=== PATIENT | female | born 1930 | race Caucasian/White ===

== ENCOUNTER → 2017-07-20 | Outpatient (CLI) | payer MEDICARE ==
--- NOTE | 2017-07-20 14:49 | XR ---
EXAMINATION TYPE: XR Hip Complete RT DATE OF EXAM: 07/20/2017 CLINICAL HISTORY: Right hip pain after fall TECHNIQUE: AP and frogleg views of the right hip are obtained. COMPARISON: None. FINDINGS: There is no acute fracture/dislocation evident in the right hip. 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 Few surgical clips are seen within the pelvis likely from prior hernia repair. The overlying soft tissue appears unremarkable. IMPRESSION: There is no acute fracture or dislocation in the right hip. Moderate right femoral aceta bular arthropathy.
== END | disposition home or self-care (01) ==
LOC: RADXRMAIN 13:47
PROVIDERS: ATTEND Family Medicine
DX: M16.11 Unilateral primary osteoarthritis, right hip (principal)
CPT/HCPCS: 73502

== ENCOUNTER 2018-06-15 04:40 | Emergency (ER) | payer MEDICARE ==
[2018-06-15 04:51] VITALS: RESP 22
[2018-06-15] MEDS ORDERED: IPRATROPIUM-ALBUTEROL 3 ML NEB INHALATION STA (04:52)
[2018-06-15 05:16] LABS: Basophils % (A) 0 %; Eosinophils # (A) 0.2 k/uL (0-0.7); Eosinophils % (A) 3 %; HGB 12.9 gm/dL (11.4-16.0); Lymphocytes # (A) 1.3 k/uL (1.0-4.8); Lymphocytes % (A) 20 %; MCH 29.9 pg (25.0-35.0); MCHC 33.1 g/dL (31.0-37.0); MCV 90.4 fL (80.0-100.0); Mean Platelet Volume 7.4; Monocytes # (A) 0.5 k/uL (0-1.0); Monocytes % (A) 8 %; Neutrophils # (A) 4.2 k/uL (1.3-7.7); Neutrophils % (A) 66 %; Platelet Count 257 k/uL (150-450); RBC 4.32 m/uL (3.80-5.40); RDW 13.7 % (11.5-15.5); WBC 6.3 k/uL (3.8-10.6)
--- NOTE | 2018-06-15 05:18 | XR ---
EXAM: XR Chest, 2 Views CLINICAL HISTORY: ITS.REASON XR Reason: difficulty breathing TECHNIQUE: Frontal and lateral views of the chest. COMPARISON: 02/01/18 chest x-ray IMPRESSION: Unchanged heart size. No consolidation or pleural effusion.
[2018-06-15 05:33] LABS: Calcium 9.7 mg/dL (8.4-10.2); Magnesium 1.8 mg/dL (1.6-2.3); Potassium 4.1 mmol/L (3.5-5.1); Total Bilirubin 0.5 mg/dL (0.2-1.3); Total Protein 6.4 g/dL (6.3-8.2)
[2018-06-15 05:35] LABS: INR 1.1 (<1.2); Prothrombin Time 11.3 sec (9.0-12.0)
[2018-06-15 05:45] LABS: Partial Thromboplastin Time 21.8 sec (22.0-30.0)
--- NOTE | 2018-06-15 05:50 | ED ---
SOB HPI - General Chief Complaint: Shortness of Breath Stated Complaint: BRANDON Source: patient Mode of arrival: wheelchair Limitations: no limitations - History of Present Illness Initial Comments: Patient is a pleasant 87-year-old female with a history of COPD who presents to the emergency department today for shortness of breath and wheezing. Patient reports she's been using her albuterol inhalers at home with only minimal improvement in her shortness of breath which prompted her to come to the ER today for further evaluation. Patient denies any chest pain or palpitations. She reports she feels short of breath and wheezy consistent with previous COPD exacerbations. - Related Data Home Medications Medication Instructions Recorded Confirmed Aspirin [Adult Low Dose Aspirin EC] 81 mg PO DAILY 02/10/15 01/31/18 Atorvastatin Calcium [Lipitor] 10 mg PO HS 02/10/15 01/31/18 Montelukast Sodium [Singulair] 10 mg PO HS 02/10/15 01/31/18 Tiotropium [place] [Spiriva] 1 cap INHALATION RT-DAILY PRN 02/10/15 01/31/18 amLODIPine [Norvasc] 5 mg PO DAILY 02/10/15 01/31/18 diphenhydrAMINE HCL [Benadryl] 25 mg PO HS 02/10/15 01/31/18 Fluticasone/Salmeterol [Advair 1 puff INHALATION RT-BID 02/20/15 01/31/18 500-50 Diskus] Metoprolol Tartrate [Lopressor] 25 mg PO BID 02/20/15 01/31/18 Cephalexin [Keflex] 500 mg PO BID 01/31/18 01/31/18 predniSONE 10 mg PO DAILY 01/31/18 01/31/18 Previous Rx's Medication Instructions Recorded Albuterol Nebulized [Ventolin 2.5 mg INHALATION Q4H PRN #25 nebu 01/31/18 Nebulized] Albuterol Sulfate [Proair Hfa] 1 - 2 puff INHALATION Q4H PRN #1 01/31/18 inhaler Azithromycin [Zithromax Z-pack] 0 mg PO DIRECTED #1 pack 01/31/18 Sulfamethox-Tmp 800-160Mg [Bactrim 1 tab PO Q12HR #14 tab 01/31/18 DS 800-160 mg] Ipratropium-Albuterol Nebulize 3 ml INHALATION Q4H PRN #30 neb 06/15/18 [Duoneb 0.5 mg-3 mg/3 ml Soln] predniSONE [Deltasone] 40 mg PO DAILY 5 Days #10 tablet 06/15/18 Allergies Allergy/AdvReac Type Severity Reaction Status Date / Time adhesive tape Allergy Intermediate Rash/Hives Verified 01/31/18 21:49 azithromycin [From Zithromax] Allergy Unknown Verified 01/31/18 21:51 levofloxacin [From Levaquin] Allergy Unknown Verified 01/31/18 21:51 Penicillins Allergy Unknown Verified 01/31/18 21:49 Childhood Review of Systems ROS Statement: Those systems with pertinent positive or pertinent negative responses have been documented in the HPI. ROS Other: All systems not noted in ROS Statement are negative. 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 Patient is nontoxic and well- hydrated and is in no distress. HENT: Normocephalic, Atraumatic. EYES: PERRL, EOMI PULMONARY: Mild expiratory wheezing in all lung fisher CARDIOVASCULAR: There is a regular rate and rhythm without any murmurs gallops or rubs. ABDOMEN: Soft and nontender with normal bowel sounds. SKIN: Skin is clear with no lesions or rashes and otherwise unremarkable. : Deferred NEUROLOGIC: Patient is alert and oriented x3. Moving all extremities spontaneously MUSCULOSKELETAL: Normal extremities with adequate strength and full range of motion. No lower extremity swelling or edema. No calf tenderness. PSYCHIATRIC: Normal psychiatric evaluation. Limitations: no limitations Limitations: no limitations Course Vital Signs 06/15/18 06/15/18 06/15/18 04:47 04:50 05:17 Temperature 99.0 F Pulse Rate 112 H 91 Respiratory 20 22 Rate Blood Pressure 175/88 O2 Sat by Pulse 97 Oximetry 06/15/18 06/15/18 05:29 06:47 Temperature 98.8 F Pulse Rate 92 87 Respiratory 22 Rate Blood Pressure 153/84 O2 Sat by Pulse 96 Oximetry Medical Decision Making - Medical Decision Making Patient was seen in and evaluated history was obtained from patient and review of medical record Elderly female with a history of COPD not responding to nebulized albuterol home DuoNeb was ordered. Thorough workup was initiated The patient's history of shortness of breath and advanced age and EKG was ordered next line EKG was obtained at 4:54 AM EKG with a rate of 96 is a P-wave before each QRS rhythm is sinus there is normal axis there are normal intervals, ND 164, QRS 90, QTC 452 there are no acute ST elevations or depressions there is no evidence of acute ischemia or infarction Patient received DuoNeb was reevaluated afterwards reports she's feeling much better she is no longer wheezing she is breathing much easier at this time patient's comfortable with the plan for discharge home will be prescribed DuoNeb as well as steroids. All questions pertaining care were answered return parameters were discussed with the patient was discharged home in stable condition - Lab Data Result diagrams: 06/15/18 05:02 06/15/18 05:02 Lab Results 06/15/18 06/15/18 06/15/18 Range/Units 05:02 05:02 05:02 WBC 6.3 (3.8-10.6) k/uL RBC 4.32 (3.80-5.40) m/uL Hgb 12.9 (11.4-16.0) gm/dL Hct 39.0 (34.0-46.0) % MCV 90.4 (80.0-100.0) fL MCH 29.9 (25.0-35.0) pg MCHC 33.1 (31.0-37.0) g/dL RDW 13.7 (11.5-15.5) % Plt Count 257 (150-450) k/uL Neutrophils % 66 % Lymphocytes % 20 % Monocytes % 8 % Eosinophils % 3 % Basophils % 0 % Neutrophils # 4.2 (1.3-7.7) k/uL Lymphocytes # 1.3 (1.0-4.8) k/uL Monocytes # 0.5 (0-1.0) k/uL Eosinophils # 0.2 (0-0.7) k/uL Basophils # 0.0 (0-0.2) k/uL PT (9.0-12.0) sec INR (<1.2) APTT (22.0-30.0) sec Sodium 141 (137-145) mmol/L Potassium 4.1 (3.5-5.1) mmol/L Chloride 106 (98-107) mmol/L Carbon Dioxide 26 (22-30) mmol/L Anion Gap 9 mmol/L BUN 30 H (7-17) mg/dL Creatinine 1.08 H (0.52-1.04) mg/dL Est GFR (CKD-EPI)AfAm 53 (>60 ml/min/1.73 sqM) Est GFR (CKD-EPI)NonAf 46 (>60 ml/min/1.73 sqM) Glucose 102 H (74-99) mg/dL Calcium 9.7 (8.4-10.2) mg/dL Magnesium 1.8 (1.6-2.3) mg/dL Total Bilirubin 0.5 (0.2-1.3) mg/dL AST 36 (14-36) U/L ALT 41 (9-52) U/L Alkaline Phosphatase 76 (38-126) U/L Troponin I (0.000-0.034) ng/mL NT-Pro-B Natriuret Pep 241 pg/mL Total Protein 6.4 (6.3-8.2) g/dL Albumin 4.0 (3.5-5.0) g/dL 06/15/18 06/15/18 Range/Units 05:02 05:02 WBC (3.8-10.6) k/uL RBC (3.80-5.40) m/uL Hgb (11.4-16.0) gm/dL Hct (34.0-46.0) % MCV (80.0-100.0) fL MCH (25.0-35.0) pg MCHC (31.0-37.0) g/dL RDW (11.5-15.5) % Plt Count (150-450) k/uL Neutrophils % % Lymphocytes % % Monocytes % % Eosinophils % % Basophils % % Neutrophils # (1.3-7.7) k/uL Lymphocytes # (1.0-4.8) k/uL Monocytes # (0-1.0) k/uL Eosinophils # (0-0.7) k/uL Basophils # (0-0.2) k/uL PT 11.3 (9.0-12.0) sec INR 1.1 (<1.2) APTT 21.8 L (22.0-30.0) sec Sodium (137-145) mmol/L Potassium (3.5-5.1) mmol/L Chloride (98-107) mmol/L Carbon Dioxide (22-30) mmol/L Anion Gap mmol/L BUN (7-17) mg/dL Creatinine (0.52-1.04) mg/dL Est GFR (CKD-EPI)AfAm (>60 ml/min/1.73 sqM) Est GFR (CKD-EPI)NonAf (>60 ml/min/1.73 sqM) Glucose (74-99) mg/dL Calcium (8.4-10.2) mg/dL Magnesium (1.6-2.3) mg/dL Total Bilirubin (0.2-1.3) mg/dL AST (14-36) U/L ALT (9-52) U/L Alkaline Phosphatase (38-126) U/L Troponin I <0.012 (0.000-0.034) ng/mL NT-Pro-B Natriuret Pep pg/mL Total Protein (6.3-8.2) g/dL Albumin (3.5-5.0) g/dL Disposition Clinical Impression: COPD (chronic obstructive pulmonary disease) Disposition: HOME SELF-CARE Condition: Stable Instructions (If sedation given, give patient instructions): Chronic Bronchitis (ED), Chronic Cough (ED) Prescriptions: predniSONE [Deltasone] 40 mg PO DAILY 5 Days #10 tablet Ipratropium-Albuterol Nebulize [Duoneb 0.5 mg-3 mg/3 ml Soln] 3 ml INHALATION Q4H PRN #30 neb PRN Reason: Wheezing Is patient prescribed a controlled substance at d/c from ED?: No Referrals: Brando Hernandez MD [Primary Care Provider] - 1-2 days
[2018-06-15 06:49] VITALS: BP 153/84; PULSE 87; TEMP 98.8
== END 2018-06-15 07:18 | disposition home or self-care (01) ==
LOC: EC 04:40
DX: J44.9 Chronic obstructive pulmonary disease, unspecified (principal); E78.5 Hyperlipidemia, unspecified; I10 Essential (primary) hypertension; Z86.73 Personal history of transient ischemic attack (TIA), and cerebral infarction without residual deficits; Z87.891 Personal history of nicotine dependence; Z79.52 Long term (current) use of systemic steroids; Z79.82 Long term (current) use of aspirin; Z79.51 Long term (current) use of inhaled steroids; Z79.899 Other long term (current) drug therapy; Z88.0 Allergy status to penicillin; Z88.1 Allergy status to other antibiotic agents; Z91.048 Other nonmedicinal substance allergy status
CPT/HCPCS: 36415; 71046; 80053; 83735; 83880; 84484; 85025; 85610; 85730; 93005; 94640; 99285

== ENCOUNTER → 2018-07-27 | Outpatient (CLI) | payer MEDICARE ==
--- NOTE | 2018-07-27 09:29 | US ---
EXAMINATION TYPE: US renal artery duplex complet DATE OF EXAM: 07/27/2018 COMPARISON: CT CLINICAL HISTORY: N17.9 Acute kidney failure; I70.1 Atherosclerosis.. Pt states recent abnormal labs, h/o of HTN controlled many years by medication MEASUREMENTS: RENAL SIZE: Rt Kidney: 10.1 x 4.2 x 4.6 cm Lt Kidney: 10.5 x 4.2 x 3.9 cm RESISTANCE INDEX Right: 0.6 Left: 0.64 RA/AO RATIO (< 3.5 ) Right: 2.1 Left: 2.2 RA VELOCITY ( < 180 cm/s) Right: 151.9 Left: 158.5 Cysts bilateral kidneys, largest on each side measured/ Right kidney mid/lateral= 1.2 x 0.9 x 1.0 c m/ Left kidney lower pole= 1.7 x 1.3 x 1.7 cm, bladder wnl Calcifications within aorta and renal arteries, however no significant renal artery stenosis visual ized IMPRESSION: 1. No sonographic evidence for renal artery stenosis.
== END | disposition home or self-care (01) ==
LOC: RADUSWWP 07:49
PROVIDERS: ATTEND Family Medicine
DX: N17.9 Acute kidney failure, unspecified (principal)
CPT/HCPCS: 93975

== ENCOUNTER 2020-05-17 09:13 | Observation (INO) | payer MEDICARE ==
[2020-05-17] MEDS ORDERED: IPRATROPIUM-ALBUTEROL 3 ML NEB INHALATION STA (09:28)
[2020-05-17] MEDS ORDERED: methylPREDNISolone SOD SUCCI 125 MG/2 ML VIAL IV STA (09:28)
--- NOTE | 2020-05-17 09:33 | ED ---
General Adult HPI - General Chief complaint: Shortness of Breath Stated complaint: sob Time Seen by Provider: 05/17/20 09:23 Source: patient, RN notes reviewed Mode of arrival: ambulatory Limitations: no limitations - History of Present Illness Initial comments: Patient is a pleasant 89-year-old female presenting to the emergency Department with complaints of dyspnea. Patient does have similar symptoms previously associated COPD. Patient did see her doctor in the being the week and started on prednisone 20 mg daily. Yesterday patient took dose of 60 mg. No significant cough. No chest pain. No fever. No leg pain or leg swelling. - Related Data Home Medications Medication Instructions Recorded Confirmed Aspirin [Adult Low Dose Aspirin EC] 81 mg PO DAILY 02/10/15 01/31/18 Atorvastatin Calcium [Lipitor] 10 mg PO HS 02/10/15 01/31/18 Montelukast Sodium [Singulair] 10 mg PO HS 02/10/15 01/31/18 Tiotropium [place] [Spiriva] 1 cap INHALATION RT-DAILY PRN 02/10/15 01/31/18 amLODIPine [Norvasc] 5 mg PO DAILY 02/10/15 01/31/18 diphenhydrAMINE HCL [Benadryl] 25 mg PO HS 02/10/15 01/31/18 Fluticasone/Salmeterol [Advair 1 puff INHALATION RT-BID 02/20/15 01/31/18 500-50 Diskus] Metoprolol Tartrate [Lopressor] 25 mg PO BID 02/20/15 01/31/18 Cephalexin [Keflex] 500 mg PO BID 01/31/18 01/31/18 predniSONE 10 mg PO DAILY 01/31/18 01/31/18 Previous Rx's Medication Instructions Recorded Albuterol Nebulized [Ventolin 2.5 mg INHALATION Q4H PRN #25 nebu 01/31/18 Nebulized] Albuterol Sulfate [Proair Hfa] 1 - 2 puff INHALATION Q4H PRN #1 01/31/18 inhaler Azithromycin [Zithromax Z-pack (6 0 mg PO DIRECTED #1 pack 01/31/18 tabs)] Sulfamethox-Tmp 800-160Mg [Bactrim 1 tab PO Q12HR #14 tab 01/31/18 DS 800-160 mg] Ipratropium-Albuterol Nebulize 3 ml INHALATION Q4H PRN #30 neb 06/15/18 [Duoneb 0.5 mg-3 mg/3 ml Soln] predniSONE [Deltasone] 40 mg PO DAILY 5 Days #10 tablet 06/15/18 Allergies Allergy/AdvReac Type Severity Reaction Status Date / Time adhesive tape Allergy Intermediate Rash/Hives Verified 05/17/20 09:19 azithromycin [From Zithromax] Allergy Unknown Verified 05/17/20 09:19 levofloxacin [From Levaquin] Allergy Unknown Verified 05/17/20 09:19 Penicillins Allergy Unknown Verified 05/17/20 09:19 Childhood Review of Systems ROS Statement: Those systems with pertinent positive or pertinent negative responses have been documented in the HPI. ROS Other: All systems not noted in ROS Statement are negative. Constitutional: Denies: fever Eyes: Denies: eye pain ENT: Denies: ear pain Respiratory: Reports: dyspnea. Denies: cough Cardiovascular: Denies: chest pain Endocrine: Denies: fatigue Gastrointestinal: Denies: abdominal pain Genitourinary: Denies: dysuria Musculoskeletal: Denies: back pain Skin: Denies: rash Neurological: Denies: weakness Past Medical History Past Medical History: COPD, CVA/TIA, Hyperlipidemia, Hypertension, Pneumonia Additional Past Medical History / Comment(s): TIA 20 yrs ago, bruises easily, History of Any Multi-Drug Resistant Organisms: None Reported Past Surgical History: Appendectomy, Cholecystectomy, Tonsillectomy Additional Past Surgical History / Comment(s): surgery for bowel obstruction, surgery for renal artery blockage, 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 Past Anesthesia/Blood Transfusion Reactions: No Reported Reaction Past Psychological History: No Psychological Hx Reported Smoking Status: Never smoker Past Alcohol Use History: Daily Past Drug Use History: None Reported - Past Family History Daughter(s) Family Medical History: Cancer General Exam Limitations: no limitations General appearance: alert, in no apparent distress Head exam: Present: normocephalic Eye exam: Present: normal appearance Neck exam: Present: normal inspection Respiratory exam: Present: wheezes, decreased breath sounds Cardiovascular Exam: Present: regular rate, normal rhythm GI/Abdominal exam: Present: soft. Absent: tenderness Extremities exam: Present: normal inspection. Absent: pedal edema, calf tenderness Neurological exam: Present: alert Psychiatric exam: Present: normal affect, normal mood Skin exam: Present: other (Patient does have healing lesions mid posterior thoracic region she states recent biopsy) Course Vital Signs 05/17/20 05/17/20 05/17/20 09:16 10:23 10:30 Temperature 98.5 F Pulse Rate 102 H 88 90 Respiratory 22 16 16 Rate Blood Pressure 202/93 O2 Sat by Pulse 96 Oximetry 05/17/20 10:42 Temperature Pulse Rate 80 Respiratory 18 Rate Blood Pressure 166/92 O2 Sat by Pulse 97 Oximetry EKG Findings - EKG Comments: EKG Findings:: Sinus rhythm with a rate of 89. IN 148. QRS 88. QT 340. QTc 413. Normal axis. Normal QRS. Nonspecific ST-T. Medical Decision Making - Medical Decision Making Patient reevaluated with mild improvement. Patient updated. Case discussed with Dr. Ballard, who will admit covering for Dr. rajan. Low suspicion for PE. With elevated d-dimer and elevated creatinine and VQ scan will be ordered. - Lab Data Result diagrams: 05/17/20 10:07 05/17/20 10:07 Lab Results 05/17/20 05/17/20 05/17/20 Range/Units 10:07 10:07 10:07 WBC 13.7 H (3.8-10.6) k/uL RBC 4.15 (3.80-5.40) m/uL Hgb 13.0 (11.4-16.0) gm/dL Hct 38.9 (34.0-46.0) % MCV 93.9 (80.0-100.0) fL MCH 31.2 (25.0-35.0) pg MCHC 33.3 (31.0-37.0) g/dL RDW 13.6 (11.5-15.5) % Plt Count 229 (150-450) k/uL MPV 7.9 Neutrophils % 77 % Lymphocytes % 13 % Monocytes % 8 % Eosinophils % 1 % Basophils % 0 % Neutrophils # 10.6 H (1.3-7.7) k/uL Lymphocytes # 1.7 (1.0-4.8) k/uL Monocytes # 1.1 H (0-1.0) k/uL Eosinophils # 0.2 (0-0.7) k/uL Basophils # 0.1 (0-0.2) k/uL PT 10.4 (9.0-12.0) sec INR 1.0 (<1.2) APTT 19.4 L (22.0-30.0) sec D-Dimer 1.05 H (<0.60) mg/L FEU Sodium 139 (137-145) mmol/L Potassium 4.3 (3.5-5.1) mmol/L Chloride 106 (98-107) mmol/L Carbon Dioxide 22 (22-30) mmol/L Anion Gap 11 mmol/L BUN 55 H (7-17) mg/dL Creatinine 1.98 H (0.52-1.04) mg/dL Est GFR (CKD-EPI)AfAm 25 (>60 ml/min/1.73 sqM) Est GFR (CKD-EPI)NonAf 22 (>60 ml/min/1.73 sqM) Glucose 110 H (74-99) mg/dL Plasma Lactic Acid [place] (0.7-2.0) mmol/L Calcium 9.4 (8.4-10.2) mg/dL Total Bilirubin 0.4 (0.2-1.3) mg/dL AST 30 (14-36) U/L ALT 30 (4-34) U/L Alkaline Phosphatase 84 (38-126) U/L Troponin I (0.000-0.034) ng/mL NT-Pro-B Natriuret Pep pg/mL Total Protein 6.5 (6.3-8.2) g/dL Albumin 4.1 (3.5-5.0) g/dL Coronavirus (PCR) (Not Detectd) 05/17/20 05/17/20 05/17/20 Range/Units 10:07 10:07 10:07 WBC (3.8-10.6) k/uL RBC (3.80-5.40) m/uL Hgb (11.4-16.0) gm/dL Hct (34.0-46.0) % MCV (80.0-100.0) fL MCH (25.0-35.0) pg MCHC (31.0-37.0) g/dL RDW (11.5-15.5) % Plt Count (150-450) k/uL MPV Neutrophils % % Lymphocytes % % Monocytes % % Eosinophils % % Basophils % % Neutrophils # (1.3-7.7) k/uL Lymphocytes # (1.0-4.8) k/uL Monocytes # (0-1.0) k/uL Eosinophils # (0-0.7) k/uL Basophils # (0-0.2) k/uL PT (9.0-12.0) sec INR (<1.2) APTT (22.0-30.0) sec D-Dimer (<0.60) mg/L FEU Sodium (137-145) mmol/L Potassium (3.5-5.1) mmol/L Chloride (98-107) mmol/L Carbon Dioxide (22-30) mmol/L Anion Gap mmol/L BUN (7-17) mg/dL Creatinine (0.52-1.04) mg/dL Est GFR (CKD-EPI)AfAm (>60 ml/min/1.73 sqM) Est GFR (CKD-EPI)NonAf (>60 ml/min/1.73 sqM) Glucose (74-99) mg/dL Plasma Lactic Acid [place] 1.8 (0.7-2.0) mmol/L Calcium (8.4-10.2) mg/dL Total Bilirubin (0.2-1.3) mg/dL AST (14-36) U/L ALT (4-34) U/L Alkaline Phosphatase (38-126) U/L Troponin I <0.012 (0.000-0.034) ng/mL NT-Pro-B Natriuret Pep 888 pg/mL Total Protein (6.3-8.2) g/dL Albumin (3.5-5.0) g/dL Coronavirus (PCR) (Not Detectd) 05/17/20 Range/Units 10:07 WBC (3.8-10.6) k/uL RBC (3.80-5.40) m/uL Hgb (11.4-16.0) gm/dL Hct (34.0-46.0) % MCV (80.0-100.0) fL MCH (25.0-35.0) pg MCHC (31.0-37.0) g/dL RDW (11.5-15.5) % Plt Count (150-450) k/uL MPV Neutrophils % % Lymphocytes % % Monocytes % % Eosinophils % % Basophils % % Neutrophils # (1.3-7.7) k/uL Lymphocytes # (1.0-4.8) k/uL Monocytes # (0-1.0) k/uL Eosinophils # (0-0.7) k/uL Basophils # (0-0.2) k/uL PT (9.0-12.0) sec INR (<1.2) APTT (22.0-30.0) sec D-Dimer (<0.60) mg/L FEU Sodium (137-145) mmol/L Potassium (3.5-5.1) mmol/L Chloride (98-107) mmol/L Carbon Dioxide (22-30) mmol/L Anion Gap mmol/L BUN (7-17) mg/dL Creatinine (0.52-1.04) mg/dL Est GFR (CKD-EPI)AfAm (>60 ml/min/1.73 sqM) Est GFR (CKD-EPI)NonAf (>60 ml/min/1.73 sqM) Glucose (74-99) mg/dL Plasma Lactic Acid [place] (0.7-2.0) mmol/L Calcium (8.4-10.2) mg/dL Total Bilirubin (0.2-1.3) mg/dL AST (14-36) U/L ALT (4-34) U/L Alkaline Phosphatase (38-126) U/L Troponin I (0.000-0.034) ng/mL NT-Pro-B Natriuret Pep pg/mL Total Protein (6.3-8.2) g/dL Albumin (3.5-5.0) g/dL Coronavirus (PCR) Not Detected (Not Detectd) - Radiology Data Radiology results: image reviewed (Chest x-ray shows chronic changes without acute abnormality) Disposition Clinical Impression: COPD (chronic obstructive pulmonary disease) Disposition: ADMITTED IP TO THIS HOSP Is patient prescribed a controlled substance at d/c from ED?: No Referrals: Babita Barron MD [Primary Care Provider] - 1-2 days Decision Time: 11:01
[2020-05-17 10:12] LABS: Basophils # (A) 0.1 k/uL (0-0.2); Basophils % (A) 0 %; Eosinophils # (A) 0.2 k/uL (0-0.7); Eosinophils % (A) 1 %; HCT 38.9 % (34.0-46.0); Lymphocytes # (A) 1.7 k/uL (1.0-4.8); Lymphocytes % (A) 13 %; MCH 31.2 pg (25.0-35.0); MCHC 33.3 g/dL (31.0-37.0); MCV 93.9 fL (80.0-100.0); Mean Platelet Volume 7.9; Monocytes # (A) 1.1 k/uL (0-1.0); Monocytes % (A) 8 %; Neutrophils # (A) 10.6 k/uL (1.3-7.7); Neutrophils % (A) 77 %; Platelet Count 229 k/uL (150-450); RBC 4.15 m/uL (3.80-5.40); RDW 13.6 % (11.5-15.5); WBC 13.7 k/uL (3.8-10.6)
[2020-05-17 10:23] LABS: Albumin 4.1 g/dL (3.5-5.0); Calcium 9.4 mg/dL (8.4-10.2); Potassium 4.3 mmol/L (3.5-5.1); Total Bilirubin 0.4 mg/dL (0.2-1.3); Total Protein 6.5 g/dL (6.3-8.2)
--- NOTE | 2020-05-17 10:33 | XR ---
EXAMINATION TYPE: XR chest 2V DATE OF EXAM: 05/17/2020 COMPARISON: Chest x-ray June 15, 2018 HISTORY: History of COPD with difficulty breathing for one week TECHNIQUE: Frontal and lateral views of the chest are obtained. 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 The cardiac silhouette size i s is stable and upper limits of is normal with atherosclerotic change thoracic aorta. The osseous s tructures remain demineralized. IMPRESSION: Chronic changes without acute pulmonary process. No significant change from prior.
[2020-05-17 10:34] LABS: Prothrombin Time 10.4 sec (9.0-12.0)
[2020-05-17 10:37] LABS: D-Dimer 1.05 mg/L FEU (<0.60)
[2020-05-17 10:38] LABS: Partial Thromboplastin Time 19.4 sec (22.0-30.0)
[2020-05-17] MEDS ORDERED: IPRATROPIUM-ALBUTEROL 3 ML NEB INHALATION PRN (11:16)
[2020-05-17] MEDS: IPRATROPIUM-ALBUTEROL 3 ML NEB INHALATION SCH ×3 (11:38→19:48)
--- NOTE | 2020-05-17 13:03 | P.HPIM ---
History of Present Illness H&P Date: 05/17/20 Leanne Esteves, is an 89-year-old female who presented to [facility] with a chief complaint of worsening shortness of breath, patient has a known history of COPD she stated that she started having shortness of breath about 2 weeks ago she received oral steroids by her primary care physician Dr. Barron however her condition continued to worsen and she decided to come to emergency room. Patient was evaluated in emergency room her vital examination on presentation reveals a temperature of 98.5 pulse 1 or 2 respiration 22 blood pressure 202/93 pulse ox 96% on room air, her white blood count was 13.7 hemoglobin 13 platelet count 229 BUN 55 creatinine 1.98 troponin level 0.012 BNP was 888 lactic acid 1.8 d-dimer 1.05 coronavirus PCR was negative chest x-ray on presentation revealed chronic changes without acute pulmonary process, EKG revealed normal sinus rhythm with nonspecific ST and T-wave abnormality. Her past medical history is significant for history of hypertension, history of hyperlipidemia, history of COPD, history of pneumonia, history of TIA 20 years ago, history of bowel obstruction requiring surgery in the past, history of ovarian tumor removal. 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 On review of systems patient is alert and oriented 3 in no apparent distress she is complaining of weakness of breath with any activity she has some dry cough without any sputum production otherwise she denies any complaints there is no fever or chills no headache or dizziness no chest pain no palpitation no nausea or vomiting no abdominal pain no diarrhea no blood in the stools no burning with urination no frequency or urgency and no hematuria. Past Medical History Past Medical History: COPD, CVA/TIA, Hyperlipidemia, Hypertension, Pneumonia Additional Past Medical History / Comment(s): TIA 20 yrs ago, bruises easily, History of Any Multi-Drug Resistant Organisms: None Reported Past Surgical History: Appendectomy, Cholecystectomy, Tonsillectomy Additional Past Surgical History / Comment(s): surgery for bowel obstruction, surgery for renal artery blockage, 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 Past Anesthesia/Blood Transfusion Reactions: No Reported Reaction Past Psychological History: No Psychological Hx Reported Smoking Status: Never smoker Past Alcohol Use History: Daily Past Drug Use History: None Reported - Past Family History Daughter(s) Family Medical History: Cancer Medications and Allergies Home Medications Medication Instructions Recorded Confirmed Type Aspirin [Adult Low Dose Aspirin EC] 81 mg PO DAILY 02/10/15 05/17/20 History Atorvastatin Calcium [Lipitor] 10 mg PO HS 02/10/15 05/17/20 History Montelukast Sodium [Singulair] 10 mg PO HS 02/10/15 05/17/20 History amLODIPine [Norvasc] 5 mg PO DAILY 02/10/15 05/17/20 History Metoprolol Tartrate [Lopressor] 25 mg PO BID 02/20/15 05/17/20 History Fluticasone/Umeclidin/Vilanter 1 puff INHALATION RT-DAILY 05/17/20 05/17/20 History [Trelegy Ellipta 100-62.5-25] Multivitamins, Thera [Multivitamin 1 tab PO DAILY 05/17/20 05/17/20 History (formulary)] predniSONE [Deltasone] See Taper PO DAILY 05/17/20 05/17/20 History Allergies Allergy/AdvReac Type Severity Reaction Status Date / Time adhesive tape Allergy Intermediate Rash/Hives Verified 05/17/20 11:05 azithromycin [From Zithromax] Allergy Unknown Verified 05/17/20 11:05 levofloxacin [From Levaquin] Allergy Unknown Verified 05/17/20 11:05 Penicillins Allergy Unknown Verified 05/17/20 11:05 Childhood Physical Exam Vitals: Vital Signs Temp Pulse Resp BP Pulse Ox 05/17/20 10:42 80 18 166/92 97 05/17/20 10:30 90 16 05/17/20 10:23 88 16 05/17/20 09:16 98.5 F 102 H 22 202/93 96 Intake and Output 05/16/20 05/17/20 05/17/20 22:59 06:59 14:59 Other: Weight 68.039 kg In general patient is alert and oriented 3 in no apparent distress HEENT head normocephalic and atraumatic Neck is supple no JVD no goiter no lymphadenopathy Chest exam reveals a scattered crackles bilaterally no wheezing Cardiac exam reveals regular heart sounds S1 and S2 no gallops no murmurs Abdomen is soft nontender no organomegaly with normal bowel sounds Extremity exam reveals no edema no cyanosis or clubbing Neurological examination reveals no gross focal deficit Results CBC & Chem 7: 05/17/20 10:07 05/17/20 10:07 Labs: Abnormal Lab Results - Last 24 Hours (Table) 05/17/20 05/17/20 05/17/20 Range/Units 10:07 10:07 10:07 WBC 13.7 H (3.8-10.6) k/uL Neutrophils # 10.6 H (1.3-7.7) k/uL Monocytes # 1.1 H (0-1.0) k/uL APTT 19.4 L (22.0-30.0) sec D-Dimer 1.05 H (<0.60) mg/L FEU BUN 55 H (7-17) mg/dL Creatinine 1.98 H (0.52-1.04) mg/dL Glucose 110 H (74-99) mg/dL Assessment and Plan Plan: 1. Worsening shortness of breath likely related to acute exacerbation of COPD patient will be given IV Solu-Medrol and inhaled bronchodilators, pulmonary consultation was requested. 2. Mildly elevated d-dimer, patient has elevated BUN and creatinine, CT angiogram of the chest was not done in the emergency room, will cover was Lovenox, and check VQ scan 3. Underlying history of hypertension, with hypertensive urgency on presentation patient stated that she did not take her blood pressure medications this morning, will resume blood pressure medications and adjust if needed 4. Underlying history of hyperlipidemia maintained on Lipitor will continue Will follow during this admission For GI prophylaxis Will add proton next, for DVT prophylaxis will give full dose of Lovenox at this time until VQ scan is done
--- NOTE | 2020-05-17 13:32 | NM ---
EXAMINATION TYPE: NM pul vent and perfuse DATE OF EXAM: 05/17/2020 COMPARISON: Same day chest x-ray. HISTORY: Shortness of breath TECHNIQUE: Utilizing inhalation of 65.8 mCi Tc 99m DTPA aerosol and intravenous injection of 5.1 mCi of Tc 99m MAA, ventilation and perfusion images are acquired post injection in multiple projections. FINDINGS: Central clumping with heterogeneity on ventilation images consistent with underlying COPD. Improved radiotracer uptake on perfusion images. There is no evidence of mismatched defects. IMPRESSION: Low scintigraphic evidence for acute pulmonary embolism.
[2020-05-17] MEDS: methylPREDNISolone SOD SUCCI 125 MG/2 ML VIAL IV SCH ×3 (14:37→23:17)
[2020-05-17] MEDS: MULTIVITAMINS, THERA 1 EACH TAB PO SCH (14:38)
[2020-05-17] MEDS: ASPIRIN 81 MG PO SCH (14:38)
[2020-05-17] MEDS: amLODIPine 5 MG TAB PO SCH (14:38)
[2020-05-17] MEDS: METOPROLOL TARTRATE 25 MG TAB PO SCH ×2 (14:38→20:44)
[2020-05-17] MEDS: IPRATROPIUM 0.5 MG/2.5 ML NEBU INHALATION SCH ×2 (15:34→19:49)
[2020-05-17] MEDS: ATORVASTATIN 10 MG TAB PO SCH (20:44)
[2020-05-17] MEDS: ENOXAPARIN 60 MG/0.6 ML SYRINGE SQ SCH (20:45)
[2020-05-17] MEDS: MONTELUKAST 10 MG TAB PO SCH (20:45)
[2020-05-18] MEDS: methylPREDNISolone SOD SUCCI 125 MG/2 ML VIAL IV SCH ×2 (05:00→13:27)
[2020-05-18] MEDS: SYMBICORT 80-4.5 MCG INHALER INHALATION SCH ×2 (08:45→20:57)
[2020-05-18] MEDS: IPRATROPIUM-ALBUTEROL 3 ML NEB INHALATION SCH ×4 (08:45→20:57)
[2020-05-18] MEDS: ENOXAPARIN 60 MG/0.6 ML SYRINGE SQ SCH (08:46)
[2020-05-18] MEDS: amLODIPine 5 MG TAB PO SCH ×2 (08:47→21:57)
[2020-05-18] MEDS: MULTIVITAMINS, THERA 1 EACH TAB PO SCH (08:47)
[2020-05-18] MEDS: METOPROLOL TARTRATE 25 MG TAB PO SCH ×2 (08:47→21:57)
[2020-05-18] MEDS: PANTOPRAZOLE 40 MG TABLET PO SCH (08:47)
[2020-05-18] MEDS: ASPIRIN 81 MG PO SCH (08:47)
[2020-05-18] MEDS: IPRATROPIUM 0.5 MG/2.5 ML NEBU INHALATION SCH ×4 (08:48→20:58)
[2020-05-18] MEDS ORDERED: ENOXAPARIN 40 MG/0.4 ML SYRINGE SQ SCH (09:00)
--- NOTE | 2020-05-18 13:47 | P.CNPUL ---
History of Present Illness Consult date: 05/18/20 Reason for consult: dyspnea, COPD History of present illness: 89-year-old. Patient presented to the emergency department because of worsening shortness of breath. She is known to have COPD and over the past 2 weeks she was getting progressively worse. In the emergency she was also noted to have high blood pressure of 202/93. Her pulse ox was 96% on room air. She is a creatinine of 1.9 with a BUN of 55 and the proBNP level was 888 and a lactic acid level was at 1.8 with a d-dimer of 1.05. the provider/Covid 19 testing was negative. The patient was given also a VQ scan that do not to be of a low probability. She is known to have COPD, previous history of TIA more than 20 years ago, hypertension hyperlipidemia previous history of bowel obstruction requiring surgery. She also has a previous history of ovarian tumor that has been resected. She is an ex-smoker and quit smoking about 30 years ago. She sees pulmonary in our office. Her chest x-ray is consistent with COPD. No acute abnormalities are noted. No chest pain. No pleurisy. She is currently on DuoNeb nebulized treatments around the clock, she is on Symbicort 2 puffs twice a day and she is also on IV Solu-Medrol 60 mg every 6 hours. Home medications of been all resumed. Review of Systems Constitutional: Denies chills, Denies fever Eyes: denies as per HPI, denies blurred vision, denies bulging eye, denies decreased vision, denies diplopia, denies discharge, denies dry eye, denies irritation, denies itching, denies pain, denies photophobia, denies loss of peripheral vision, denies loss of vision, denies tunnel vision/blind spots Ears, nose, mouth and throat: Denies headache, Denies sore throat Breasts: absent: as per HPI, change in shape, gynecomastia, masses, nipple discharge, pain, skin changes, swelling Cardiovascular: Reports decreased exercise tolerance, Reports dyspnea on exertion Respiratory: Reports cough, Reports dyspnea Gastrointestinal: Reports as per HPI Genitourinary: Reports as per HPI Menstruation: Reports as per HPI Musculoskeletal: Reports as per HPI Musculoskeletal: absent: ankle pain, ankle stiffness, ankle swelling Integumentary: Reports as per HPI Neurological: Reports as per HPI Psychiatric: Reports as per HPI Endocrine: Reports as per HPI Hematologic/Lymphatic: Reports as per HPI Allergic/Immunologic: Reports as per HPI Past Medical History Past Medical History: COPD, CVA/TIA, Hyperlipidemia, Hypertension, Renal Disease Additional Past Medical History / Comment(s): TIA 20 yrs ago, the patient has advanced COPD and the patient has had a previous spirometry from 02/01/2019 indicating an FEV1 of 47% of predicted consistent with moderate to severe disease. Previous history of bowel obstruction, acid reflux, herpes zoster, ovarian tumor many years back. Chronic stage IV kidney disease History of Any Multi-Drug Resistant Organisms: None Reported Past Surgical History: Appendectomy, Cholecystectomy, Tonsillectomy Additional Past Surgical History / Comment(s): surgery for bowel obstruction, surgery for renal artery blockage, 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 Past Anesthesia/Blood Transfusion Reactions: No Reported Reaction Past Psychological History: No Psychological Hx Reported Smoking Status: Former smoker Past Alcohol Use History: Daily Additional Past Alcohol Use History / Comment(s): 1 glass wine daily Past Drug Use History: None Reported - Past Family History Daughter(s) Family Medical History: Cancer Medications and Allergies Home Medications Medication Instructions Recorded Confirmed Type Aspirin [Adult Low Dose Aspirin EC] 81 mg PO DAILY 02/10/15 05/17/20 History Atorvastatin Calcium [Lipitor] 10 mg PO HS 02/10/15 05/17/20 History Montelukast Sodium [Singulair] 10 mg PO HS 02/10/15 05/17/20 History amLODIPine [Norvasc] 5 mg PO DAILY 02/10/15 05/17/20 History Metoprolol Tartrate [Lopressor] 25 mg PO BID 02/20/15 05/17/20 History Fluticasone/Umeclidin/Vilanter 1 puff INHALATION RT-DAILY 05/17/20 05/17/20 History [Trelegy Ellipta 100-62.5-25] Multivitamins, Thera [Multivitamin 1 tab PO DAILY 05/17/20 05/17/20 History (formulary)] predniSONE [Deltasone] See Taper PO DAILY 05/17/20 05/17/20 History Allergies Allergy/AdvReac Type Severity Reaction Status Date / Time adhesive tape Allergy Intermediate Rash/Hives Verified 05/17/20 11:05 azithromycin [From Zithromax] Allergy Unknown Verified 05/17/20 11:05 levofloxacin [From Levaquin] Allergy Unknown Verified 05/17/20 11:05 Penicillins Allergy Unknown Verified 05/17/20 11:05 Childhood Physical Exam Vitals: Vital Signs Temp Pulse Pulse Resp BP Pulse Ox 05/18/20 12:03 82 16 05/18/20 11:52 84 16 05/18/20 09:00 88 16 05/18/20 08:46 86 16 95 05/18/20 07:00 98.1 F 76 18 182/86 97 05/18/20 01:44 97.8 F 63 16 169/79 97 05/18/20 00:49 19 05/17/20 20:00 98.3 F 81 17 161/77 96 05/17/20 19:58 86 05/17/20 19:50 86 05/17/20 15:45 86 05/17/20 15:37 84 05/17/20 15:00 97.9 F 82 20 173/76 97 05/17/20 14:00 82 20 Intake and Output 05/17/20 05/18/20 05/18/20 22:59 06:59 14:59 Intake Total 480 545 Balance 480 545 Intake: Oral 480 545 Other: Voiding Method Diaper Diaper Diaper # Voids 1 2 Results The patient appeared well nourished and normally developed. Vital signs as documented. Head exam is unremarkable. No scleral icterus or corneal arcus noted. Neck is without jugular venous distension, thyromegaly, or carotid bruits. Carotid upstrokes are brisk bilaterally. Lungs are clear to auscultation and percussion. Cardiac exam reveals the PMI to be normally sized and situated. Rhythm is regular. First and second heart sounds normal. No murmurs, rubs or gallops. Abdominal exam reveals normal bowel sounds, no masses, no organomegaly and no aortic enlargement. Extremities are nonedematous and both femoral and pedal pulses are normal.Examination of the skin revealed no evidence of significant rashes, suspicious appearing nevi or other concerning lesions.Neur ologically, the patient is awake and alert and the patient does not have any focal neurological deficit. Cranial nerves are essentially intact. - Laboratory Findings CBC and BMP: 05/17/20 10:07 05/17/20 10:07 PT/INR, D-dimer PT 10.4 sec (9.0-12.0) 05/17/20 10:07 INR 1.0 (<1.2) 05/17/20 10:07 D-Dimer 1.05 mg/L FEU (<0.60) H 05/17/20 10:07 Abnormal lab findings: Abnormal Labs 05/17/20 05/17/20 05/17/20 10:07 10:07 10:07 WBC 13.7 H Neutrophils # 10.6 H Monocytes # 1.1 H APTT 19.4 L D-Dimer 1.05 H BUN 55 H Creatinine 1.98 H Glucose 110 H - Diagnostic Findings Chest x-ray: image reviewed Assessment and Plan Plan: 1 acute exacerbation of COPD in a patient with advanced severe COPD was been oxygen and steroid dependent. Her FEV1 is order of 47% of predicted and the patient is demented on a combination of Trelegy Ellipta , Ventolin and albuterol nebulized treatments on a STEMI basis. 2 shortness of breath secondary to above 3 hypertension, the patient's blood pressure is still high. 4 hyperlipidemia 5 remote history of TIA 6 remote history of ovarian cancer resected 7 remote history of bowel obstruction requiring surgical intervention 8 chronic kidney disease with a GFR of 22 consistent with stage IV kidney disease Plan Clinically the patient is improving. She is less short of breath. She is not oxygen dependent. She is steroid-dependent and she takes Trelegy at home. She is feeling better. Continue same treatment. We'll start tapering steroids as of tomorrow or the day after. Her Covid 19 testing was negative and the patient has already been vaccinated. I'm going to cut down the steroids which may also help her with her blood pressure control. Her BP is elevated and I'll suggest increasing the Norvasc to 10 mg by mouth daily. Continue metoprolol 25 mg by mouth twice a day.
[2020-05-18] MEDS: hydrALAZINE HCL 25 MG TAB PO SCH ×2 (16:17→21:58)
--- NOTE | 2020-05-18 18:14 | P.PN ---
Subjective Progress Note Date: 05/18/20 Leanne Esteves, is an 89-year-old female who presented to [facility] with a chief complaint of worsening shortness of breath, patient has a known history of COPD she stated that she started having shortness of breath about 2 weeks ago she received oral steroids by her primary care physician Dr. Barron however her condition continued to worsen and she decided to come to emergency room. Patient was evaluated in emergency room her vital examination on presentation reveals a temperature of 98.5 pulse 1 or 2 respiration 22 blood pressure 202/93 pulse ox 96% on room air, her white blood count was 13.7 hemoglobin 13 platelet count 229 BUN 55 creatinine 1.98 troponin level 0.012 BNP was 888 lactic acid 1.8 d-dimer 1.05 coronavirus PCR was negative chest x-ray on presentation revealed chronic changes without acute pulmonary process, EKG revealed normal sinus rhythm with nonspecific ST and T-wave abnormality. Her past medical history is significant for history of hypertension, history of hyperlipidemia, history of COPD, history of pneumonia, history of TIA 20 years ago, history of bowel obstruction requiring surgery in the past, history of ovarian tumor removal. 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 On review of systems patient is alert and oriented 3 in no apparent distress she is complaining of weakness of breath with any activity she has some dry cough without any sputum production otherwise she denies any complaints there is no fever or chills no headache or dizziness no chest pain no palpitation no nausea or vomiting no abdominal pain no diarrhea no blood in the stools no burning with urination no frequency or urgency and no hematuria. On 05/18/2020 patient was seen and examined on the medical floor she is alert and oriented 3 in no apparent distress, her shortness of breath is improving, she denies any other symptoms there is no fever or chills no headache or dizziness no chest pain no cough no sputum production no palpitation no nausea or vomiting no abdominal pain no diarrhea no blood in the stools no burning with urination no frequency or urgency and no hematuria. VQ scan was done yesterday and showed low probability for pulmonary embolism at this time will discontinue Lovenox 60 mg twice daily and start Lovenox 40 mg subcu once daily. Objective - Vital Signs Vital signs: Vital Signs Temp 98.1 F 03/01/21 07:00 Pulse 86 05/18/20 08:46 Resp 16 05/18/20 08:46 BP 182/86 05/18/20 07:00 Pulse Ox 95 05/18/20 08:46 Intake & Output 05/17/20 05/18/20 05/18/20 18:59 06:59 18:59 Intake Total 680 545 Balance 680 545 Weight 68.039 kg Intake: Oral 680 545 Other: Voiding Method Diaper Diaper Diaper # Voids 1 2 - Exam In general patient is alert and oriented 3 in no apparent distress HEENT head normocephalic and atraumatic Neck is supple no JVD no goiter no lymphadenopathy Chest exam reveals a scattered crackles bilaterally no wheezing Cardiac exam reveals regular heart sounds S1 and S2 no gallops no murmurs Abdomen is soft nontender no organomegaly with normal bowel sounds Extremity exam reveals no edema no cyanosis or clubbing Neurological examination reveals no gross focal deficit - Labs CBC & Chem 7: 05/17/20 10:07 05/17/20 10:07 Labs: Abnormal Lab Results - Last 24 Hours (Table) 05/17/20 05/17/20 05/17/20 Range/Units 10:07 10:07 10:07 WBC 13.7 H (3.8-10.6) k/uL Neutrophils # 10.6 H (1.3-7.7) k/uL Monocytes # 1.1 H (0-1.0) k/uL APTT 19.4 L (22.0-30.0) sec D-Dimer 1.05 H (<0.60) mg/L FEU BUN 55 H (7-17) mg/dL Creatinine 1.98 H (0.52-1.04) mg/dL Glucose 110 H (74-99) mg/dL Assessment and Plan Plan: 1. Worsening shortness of breath likely related to acute exacerbation of COPD patient will be given IV Solu-Medrol and inhaled bronchodilators, pulmonary consultation was requested. 2. Mildly elevated d-dimer, patient has elevated BUN and creatinine, CT angiogram of the chest was not done in the emergency room, will cover with full therapeutic dose Lovenox, and check VQ scan . VQ scan was done and was low prob ability for pulmonary embolism will discontinue Lovenox 60 mg subcu twice daily, and start Lovenox 40 mg subcu once daily. 3. Underlying history of hypertension, with hypertensive urgency on present ation patient stated that she did not take her blood pressure medications this morning, will resume blood pressure medications and adjust if needed 4. Underlying history of hyperlipidemia maintained on Lipitor will continue Will follow during this admission For GI prophylaxis Will add proton next, for DVT prophylaxis will give full dose of Lovenox at this time until VQ scan is done VQ scan low probability for PE dose of Lovenox changed to 40 mg subcu once daily
[2020-05-18] MEDS: MONTELUKAST 10 MG TAB PO SCH (21:57)
[2020-05-18] MEDS: ATORVASTATIN 10 MG TAB PO SCH (21:58)
[2020-05-18] MEDS: methylPREDNISolone SOD SUCCI 40 MG/ML 1 ML VIAL IV SCH (22:00)
[2020-05-19] MEDS: IPRATROPIUM-ALBUTEROL 3 ML NEB INHALATION SCH ×2 (08:11→11:35)
[2020-05-19] MEDS: SYMBICORT 80-4.5 MCG INHALER INHALATION SCH (08:13)
[2020-05-19] MEDS: IPRATROPIUM 0.5 MG/2.5 ML NEBU INHALATION SCH ×2 (08:13→11:35)
[2020-05-19] MEDS: methylPREDNISolone SOD SUCCI 40 MG/ML 1 ML VIAL IV SCH (08:27)
[2020-05-19] MEDS: ENOXAPARIN 30 MG/0.3 ML SYRINGE SQ SCH (08:27)
[2020-05-19] MEDS: hydrALAZINE HCL 25 MG TAB PO SCH (08:27)
[2020-05-19] MEDS: METOPROLOL TARTRATE 25 MG TAB PO SCH ×2 (08:27→20:28)
[2020-05-19] MEDS: PANTOPRAZOLE 40 MG TABLET PO SCH (08:28)
[2020-05-19] MEDS: ASPIRIN 81 MG PO SCH (08:28)
[2020-05-19] MEDS: MULTIVITAMINS, THERA 1 EACH TAB PO SCH (08:28)
[2020-05-19] MEDS: amLODIPine 5 MG TAB PO SCH ×2 (08:28→20:28)
[2020-05-19 09:12] LABS: African American GFR (CKD) 23.6 (60.0-200.0); Albumin 4.1 g/dL (3.80-4.90); Albumin/Globulin Ratio 2.41 (1.60-3.17); Anion Gap 9.3 mmol/L (4.00-12.00); BUN/Creat Ratio 30.48 Ratio (12.00-20.00); Carbon Dioxide 25.7 mmol/L (21.6-31.8); Globulin 1.7 g/dL (1.6-3.3); Non-African American GFR(CKD) 20.4 (60.0-200.0); Potassium 4.9 mmol/L (3.5-5.5); Total Bilirubin 0.4 mg/dL (0.2-1.2); Total Protein 5.8 g/dL (6.2-8.2)
[2020-05-19 09:14] LABS: Basophils # (A) 0.02 X 10*3/uL (0.00-0.10); Basophils % (A) 0.1 %; Eosinophils # (A) 0 X 10*3/uL (0.04-0.35); Eosinophils % (A) 0 %; HCT 33.6 % (37.2-46.3); HGB 10.9 g/dL (12.0-15.0); Lymphocytes # (A) 0.56 X 10*3/uL (0.90-5.00); Lymphocytes % (A) 3.4 %; MCH 30.9 pg (27.0-32.0); MCHC 32.4 g/dL (32.0-37.0); MCV 95.2 fL (80.0-97.0); Mean Platelet Volume 12.2 fL (9.5-12.2); Monocytes # (A) 0.48 X 10*3/uL (0.20-1.00); Monocytes % (A) 2.9 %; Neutrophils # (A) 15.25 X 10*3/uL (1.80-7.70); Neutrophils % (A) 92.7 %; Platelet Count 221 X 10*3/uL (140-440); RBC 3.53 X 10*6/uL (4.10-5.20); RDW 14.1 % (11.5-14.5); WBC 16.45 X 10*3/uL (4.50-10.00)
--- NOTE | 2020-05-19 11:50 | P.PN ---
Subjective Progress Note Date: 05/19/20 89-year-old. Patient presented to the emergency department because of worsening shortness of breath. She is known to have COPD and over the past 2 weeks she was getting progressively worse. In the emergency she was also noted to have high blood pressure of 202/93. Her pulse ox was 96% on room air. She is a creatinine of 1.9 with a BUN of 55 and the proBNP level was 888 and a lactic acid level was at 1.8 with a d-dimer of 1.05. the provider/Covid 19 testing was negative. The patient was given also a VQ scan that do not to be of a low probability. She is known to have COPD, previous history of TIA more than 20 years ago, hypertension hyperlipidemia previous history of bowel obstruction requiring surgery. She also has a previous history of ovarian tumor that has been resected. She is an ex-smoker and quit smoking about 30 years ago. She sees pulmonary in our office. Her chest x-ray is consistent with COPD. No acute abnormalities are noted. No chest pain. No pleurisy. She is currently on DuoNeb nebulized treatments around the clock, she is on Symbicort 2 puffs twice a day and she is also on IV Solu-Medrol 60 mg every 6 hours. Home medications of been all resumed. On today's evaluation of 05/19/2020, the patient is being seen for a follow-up. She is feeling well. No significant respiratory distress for now. No nausea. No vomiting. No abdominal pain. No chest pain. She feels that the breathing treatment is making her a bit nauseous. She is on DuoNeb nebulized treatments around the clock, she is on Symbicort 2 puffs twice a day and she is also on Solu-Medrol 40 mg U 12 hours and the dose was tapered yesterday. Objective - Vital Signs Vital signs: Vital Signs Temp 97.5 F L 05/19/20 07:00 Pulse 76 05/19/20 11:36 Resp 18 05/19/20 07:00 BP 180/81 05/19/20 07:00 Pulse Ox 96 05/19/20 07:00 Intake & Output 05/18/20 05/19/20 05/19/20 18:59 06:59 18:59 Intake Total 480 1440 Balance 480 1440 Intake: Oral 480 1440 Other: Voiding Method Diaper Diaper # Voids 3 1 - Exam The patient appeared well nourished and normally developed. Vital signs as documented. Head exam is unremarkable. No scleral icterus or corneal arcus noted. Neck is without jugular venous distension, thyromegaly, or carotid bruits . Carotid upstrokes are brisk bilaterally. Lungs are clear to auscultation and percussion. Cardiac exam reveals the PMI to be normally sized and situated. Rhythm is regular. First and second heart sounds normal. No murmurs, rubs or gallops. Abdominal exam reveals normal bowel sounds, no masses, no organomegaly and no aortic enlargement. Extremities are nonedematous and both femoral and pedal pulses are normal.Examination of the skin revealed no evidence of significant rashes, suspicious appearing nevi or other concerning lesions.Neurologically, the patient is awake and alert and the patient does not have any focal neurological deficit. Cranial nerves are essentially intact. - Labs CBC & Chem 7: 05/19/20 05:03 05/19/20 05:03 Labs: Abnormal Lab Results - Last 24 Hours (Table) 05/19/20 05/19/20 Range/Units 05:03 05:03 WBC 16.45 H (4.50-10.00) X 10*3/uL RBC 3.53 L (4.10-5.20) X 10*6/uL Hgb 10.9 L (12.0-15.0) g/dL Hct 33.6 L (37.2-46.3) % Immature Gran # 0.14 H (0.00-0.04) X 10*3/uL Neutrophils # 15.25 H (1.80-7.70) X 10*3/uL Lymphocytes # 0.56 L (0.90-5.00) X 10*3/uL Eosinophils # 0 L (0.04-0.35) X 10*3/uL BUN 64.0 H (9.0-27.0) mg/dL Creatinine 2.1 H (0.6-1.5) mg/dL Est GFR (CKD-EPI)AfAm 23.6 L (60.0-200.0) Est GFR (CKD-EPI)NonAf 20.4 L (60.0-200.0) BUN/Creatinine Ratio 30.48 H (12.00-20.00) Ratio Glucose 152 H (70-110) mg/dL Total Protein 5.8 L (6.2-8.2) g/dL Assessment and Plan Plan: 1 acute exacerbation of COPD in a patient with advanced severe COPD was been oxygen and steroid dependent. Her FEV1 is order of 47% of predicted and the patient is on Trelegy Ellipta , Ventolin and albuterol nebulized treatments on a when necessary basis.. 2 shortness of breath secondary to above 3 hypertension, the patient's blood pressure is still high. 4 hyperlipidemia 5 remote history of TIA 6 remote history of ovarian cancer resected 7 remote history of bowel obstruction requiring surgical intervention 8 chronic kidney disease with a GFR of 22 consistent with stage IV kidney disease Plan Clinically the patient is improving. She is less short of breath. She is not oxygen dependent. She is steroid-dependent and she takes Trelegy at home. I think is reasonable to discontinue the Symbicort and allow the patient to use her home Trelegy Ellipta one inhalation a day and uses albuterol on an as-needed basis. She can also off the IV Solu-Medrol and started prednisone burst taper. I also noted that the blood pressure was high. I increased the Norvasc to 5 mg by mouth twice a day. She is under better control though still high. We'll continue to monitor and make further adjustments. Suggest addition of hydralazine 50 mg by mouth twice a day for tighter blood pressure control.
[2020-05-19] MEDS ORDERED: ALBUTEROL NEBULIZED 2.5 MG/3 ML INHALATION PRN (11:54)
[2020-05-19] MEDS ORDERED: hydrALAZINE HCL 25 MG TAB PO ONE (12:00)
[2020-05-19] MEDS: TRELEGY ELLIPTA INHALATION SCH (12:17)
--- NOTE | 2020-05-19 13:12 | P.PN ---
Subjective Progress Note Date: 05/19/20 Leanne Esteves, is an 89-year-old female who presented to [facility] with a chief complaint of worsening shortness of breath, patient has a known history of COPD she stated that she started having shortness of breath about 2 weeks ago she received oral steroids by her primary care physician Dr. Barron however her condition continued to worsen and she decided to come to emergency room. Patient was evaluated in emergency room her vital examination on presentation reveals a temperature of 98.5 pulse 1 or 2 respiration 22 blood pressure 202/93 pulse ox 96% on room air, her white blood count was 13.7 hemoglobin 13 platelet count 229 BUN 55 creatinine 1.98 troponin level 0.012 BNP was 888 lactic acid 1.8 d-dimer 1.05 coronavirus PCR was negative chest x-ray on presentation revealed chronic changes without acute pulmonary process, EKG revealed normal sinus rhythm with nonspecific ST and T-wave abnormality. Her past medical history is significant for history of hypertension, history of hyperlipidemia, history of COPD, history of pneumonia, history of TIA 20 years ago, history of bowel obstruction requiring surgery in the past, history of ovarian tumor removal. 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 On review of systems patient is alert and oriented 3 in no apparent distress she is complaining of weakness of breath with any activity she has some dry cough without any sputum production otherwise she denies any complaints there is no fever or chills no headache or dizziness no chest pain no palpitation no nausea or vomiting no abdominal pain no diarrhea no blood in the stools no burning with urination no frequency or urgency and no hematuria. On 05/18/2020 patient was seen and examined on the medical floor she is alert and oriented 3 in no apparent distress, her shortness of breath is improving, she denies any other symptoms there is no fever or chills no headache or dizziness no chest pain no cough no sputum production no palpitation no nausea or vomiting no abdominal pain no diarrhea no blood in the stools no burning with urination no frequency or urgency and no hematuria. VQ scan was done yesterday and showed low probability for pulmonary embolism at this time will discontinue Lovenox 60 mg twice daily and start Lovenox 40 mg subcu once daily. On 05/19/2020 patient was seen and examined on the medical floor she is alert and oriented 3 in no distress she is still complaining of shortness of breath however she improved since yesterday otherwise she denies any complaints there is no fever or chills no headache or dizziness no chest pain no palpitation no nausea or vomiting no abdominal pain no diarrhea no blood in the stools no burning with urination no frequency or urgency and no hematuria. Blood pressure remains elevated yesterday Norvasc dose was increased to 10 mg daily today hydralazine was added to her regimen will continue to monitor blood pressure closely Objective - Vital Signs Vital signs: Vital Signs Temp 97.5 F L 05/19/20 07:00 Pulse 77 05/19/20 11:50 Resp 18 05/19/20 07:00 BP 180/81 05/19/20 07:00 Pulse Ox 96 05/19/20 07:00 Intake & Output 05/18/20 05/19/20 05/19/20 18:59 06:59 18:59 Intake Total 480 1440 Balance 480 1440 Intake: Oral 480 1440 Other: Voiding Method Diaper Diaper # Voids 3 1 - Exam In general patient is alert and oriented 3 in no apparent distress HEENT head normocephalic and atraumatic Neck is supple no JVD no goiter no lymphadenopathy Chest exam reveals a scattered crackles bilaterally no wheezing Cardiac exam reveals regular heart sounds S1 and S2 no gallops no murmurs Abdomen is soft nontender no organomegaly with normal bowel sounds Extremity exam reveals no edema no cyanosis or clubbing Neurological examination reveals no gross focal deficit - Labs CBC & Chem 7: 05/19/20 05:03 05/19/20 05:03 Labs: Abnormal Lab Results - Last 24 Hours (Table) 05/19/20 05/19/20 Range/Units 05:03 05:03 WBC 16.45 H (4.50-10.00) X 10*3/uL RBC 3.53 L (4.10-5.20) X 10*6/uL Hgb 10.9 L (12.0-15.0) g/dL Hct 33.6 L (37.2-46.3) % Immature Gran # 0.14 H (0.00-0.04) X 10*3/uL Neutrophils # 15.25 H (1.80-7.70) X 10*3/uL Lymphocytes # 0.56 L (0.90-5.00) X 10*3/uL Eosinophils # 0 L (0.04-0.35) X 10*3/uL BUN 64.0 H (9.0-27.0) mg/dL Creatinine 2.1 H (0.6-1.5) mg/dL Est GFR (CKD-EPI)AfAm 23.6 L (60.0-200.0) Est GFR (CKD-EPI)NonAf 20.4 L (60.0-200.0) BUN/Creatinine Ratio 30.48 H (12.00-20.00) Ratio Glucose 152 H (70-110) mg/dL Total Protein 5.8 L (6.2-8.2) g/dL Assessment and Plan Plan: 1. Worsening shortness of breath likely related to acute exacerbation of COPD patient will be given IV Solu-Medrol and inhaled bronchodilators, pulmonary consultation was requested. 2. Mildly elevated d-dimer, patient has elevated BUN and creatinine, CT angiogram of the chest was not done in the emergency room, will cover with full therapeutic dose Lovenox, and check VQ scan . VQ scan was done and was low probability for pulmonary embolism will discontinue Lovenox 60 mg subcu twice daily, and start Lovenox 40 mg subcu once daily. 3. Underlying history of hypertension, with hypertensive urgency on presentation, Norvasc was increased to 5 mg twice a day and hydralazine was added to her regimen 4. Underlying history of hyperlipidemia maintained on Lipitor will continue Will follow during this admission For GI prophylaxis Will add proton next, for DVT prophylaxis will give full dose of Lovenox at this time until VQ scan is done VQ scan low probability for PE dose of Lovenox changed to 40 mg subcu once daily
[2020-05-19] MEDS: hydrALAZINE HCL 50 MG TAB PO SCH ×2 (16:00→20:28)
[2020-05-19] MEDS: ATORVASTATIN 10 MG TAB PO SCH (20:28)
[2020-05-19] MEDS: MONTELUKAST 10 MG TAB PO SCH (20:28)
[2020-05-20 07:19] VITALS: BP 150/66; PULSE 78; TEMP 97.5
[2020-05-20] MEDS: TRELEGY ELLIPTA INHALATION SCH (07:53)
[2020-05-20] MEDS: ENOXAPARIN 30 MG/0.3 ML SYRINGE SQ SCH (08:23)
[2020-05-20] MEDS: ASPIRIN 81 MG PO SCH (08:24)
[2020-05-20] MEDS: PANTOPRAZOLE 40 MG TABLET PO SCH (08:24)
[2020-05-20] MEDS: amLODIPine 5 MG TAB PO SCH (08:24)
[2020-05-20] MEDS: hydrALAZINE HCL 50 MG TAB PO SCH (08:24)
[2020-05-20] MEDS: MULTIVITAMINS, THERA 1 EACH TAB PO SCH (08:24)
[2020-05-20] MEDS: METOPROLOL TARTRATE 25 MG TAB PO SCH (08:24)
[2020-05-20] MEDS ORDERED: predniSONE 10 MG TAB PO SCH (09:00)
[2020-05-20 09:03] VITALS: RESP 18
--- NOTE | 2020-05-20 09:09 | P.PN ---
Subjective Progress Note Date: 05/20/20 89-year-old. Patient presented to the emergency department because of worsening shortness of breath. She is known to have COPD and over the past 2 weeks she was getting progressively worse. In the emergency she was also noted to have high blood pressure of 202/93. Her pulse ox was 96% on room air. She is a creatinine of 1.9 with a BUN of 55 and the proBNP level was 888 and a lactic acid level was at 1.8 with a d-dimer of 1.05. the provider/Covid 19 testing was negative. The patient was given also a VQ scan that do not to be of a low probability. She is known to have COPD, previous history of TIA more than 20 years ago, hypertension hyperlipidemia previous history of bowel obstruction requiring surgery. She also has a previous history of ovarian tumor that has been resected. She is an ex-smoker and quit smoking about 30 years ago. She sees pulmonary in our office. Her chest x-ray is consistent with COPD. No acute abnormalities are noted. No chest pain. No pleurisy. She is currently on DuoNeb nebulized treatments around the clock, she is on Symbicort 2 puffs twice a day and she is also on IV Solu-Medrol 60 mg every 6 hours. Home medications of been all resumed. On today's evaluation of 05/19/2020, the patient is being seen for a follow-up. She is feeling well. No significant respiratory distress for now. No nausea. No vomiting. No abdominal pain. No chest pain. She feels that the breathing treatment is making her a bit nauseous. She is on DuoNeb nebulized treatments around the clock, she is on Symbicort 2 puffs twice a day and she is also on Solu-Medrol 40 mg U 12 hours and the dose was tapered yesterday. On 05/20/2020 the patient continue to improve. She is able to breathe better and she is able to speak of. This is that she is able to take deep breaths. Minimal cough. No significant sputum production. She remains on Symbicort. Solu-Medrol has been tapered down to 40 mg every 12 hours. Her pulse ox is 97% on room air. She is afebrile. White cell count is 16.4 from yesterday. Creatinine is chronically impaired as the patient has chronic renal insufficiency with a creatinine of 2.1. She is on Lovenox for DVT prophylaxis. We stopped the inhalers and she is currently on Trelegy Objective - Vital Signs Vital signs: Vital Signs Temp 97.5 F L 05/20/20 06:59 Pulse 78 05/20/20 06:59 Resp 18 05/20/20 08:00 BP 150/66 05/20/20 06:59 Pulse Ox 97 05/20/20 06:59 Intake & Output 05/19/20 05/20/20 05/20/20 18:59 06:59 18:59 Intake Total 2160 720 Balance 2160 720 Intake: Oral 2160 720 Other: Voiding Method Diaper Diaper # Voids 3 1 - Exam The patient appeared well nourished and normally developed. Vital signs as documented. Head exam is unremarkable. No scleral icterus or corneal arcus noted. Neck is without jugular venous distension, thyromegaly, or carotid bruits. Carotid upstrokes are brisk bilaterally. Lungs are clear to auscultation and percussion. Cardiac exam reveals the PMI to be normally sized and situated. Rhythm is regular. First and second heart sounds normal. No murmurs, rubs or gallops. Abdominal exam reveals normal bowel sounds, no masses, no organomegaly and no aortic enlargement. Extremities are nonedematous and both femoral and pedal pulses are normal.Examination of the skin revealed no evidence of significant rashes, suspicious appearing nevi or other concerning lesions.Neurologically, the patient is awake and alert and the patient does not have any focal neurological deficit. Cranial nerves are essentially intact. - Labs CBC & Chem 7: 05/19/20 05:03 05/19/20 05:03 Labs: Abnormal Lab Results - Last 24 Hours (Table) 05/19/20 05/19/20 Range/Units 05:03 05:03 WBC 16.45 H (4.50-10.00) X 10*3/uL RBC 3.53 L (4.10-5.20) X 10*6/uL Hgb 10.9 L (12.0-15.0) g/dL Hct 33.6 L (37.2-46.3) % Immature Gran # 0.14 H (0.00-0.04) X 10*3/uL Neutrophils # 15.25 H (1.80-7.70) X 10*3/uL Lymphocytes # 0.56 L (0.90-5.00) X 10*3/uL Eosinophils # 0 L (0.04-0.35) X 10*3/uL BUN 64.0 H (9.0-27.0) mg/dL Creatinine 2.1 H (0.6-1.5) mg/dL Est GFR (CKD-EPI)AfAm 23.6 L (60.0-200.0) Est GFR (CKD-EPI)NonAf 20.4 L (60.0-200.0) BUN/Creatinine Ratio 30.48 H (12.00-20.00) Ratio Glucose 152 H (70-110) mg/dL Total Protein 5.8 L (6.2-8.2) g/dL Assessment and Plan Plan: 1 acute exacerbation of COPD in a patient with advanced severe COPD was been oxy gen and steroid dependent. Her FEV1 is order of 47% of predicted and the patient is on Trelegy Ellipta , Ventolin and albuterol nebulized treatments on a when necessary basis.. 2 shortness of breath secondary to above 3 hypertension, the patient's blood pressure is still high. 4 hyperlipidemia 5 remote history of TIA 6 remote history of ovarian cancer resected 7 remote history of bowel obstruction requiring surgical intervention 8 chronic kidney disease with a GFR of 22 consistent with stage IV kidney disease Plan History improved. Suggest continuing Trelegy one inhalation a day along with a prednisone burst taper starting with 30 mg. Possible discharge home today. No active pulmonary issues for now. Clinically improved. Follow-up in the office.
--- NOTE | 2020-05-20 13:09 | P.DS ---
Providers Date of admission: 05/19/20 14:32 Expected date of discharge: 05/20/20 Attending physician: Nasra Ballard Consults: 05/17/20 11:16 Consult Physician Routine Consulting Provider: Brando Hernandez Consult Reason/Comments: dyspnea Do you want consulting provider notified?: Yes Primary care physician: Babita Barron [facility] Course: Discharge diagnosis 1. Worsening shortness of breath likely related to acute exacerbation of COPD patient will be given IV Solu-Medrol and inhaled bronchodilators, pulmonary consultation was requested. Patient evaluated by pulmonary services. Cleared for discharge. Be DC'd on prednisone taper 2. Mildly elevated d-dimer, patient has elevated BUN and creatinine, CT angiogram of the chest was not done in the emergency room, will cover with full therapeutic dose Lovenox, and check VQ scan . VQ scan was done and was low probability for pulmonary embolism will discontinue Lovenox 60 mg subcu twice daily, and start Lovenox 40 mg subcu once daily. 3. Underlying history of hypertension, with hypertensive urgency on presentation, Norvasc was increased to 5 mg twice a day and hydralazine was added to her regimen patient will be DC'd on increased dose of Norvasc and hydralazine. Patient advised follow up with PCP for further management 4. Underlying history of hyperlipidemia maintained on Lipitor will continue Will follow during this admission For GI prophylaxis Will add proton next, for DVT prophylaxis will give full dose of Lovenox at this time until VQ scan is done VQ scan low probability for PE dose of Lovenox changed to 40 mg subcu once daily Hospital course Leanne Esteves, is an 89-year-old female who presented to [facility] with a chief complaint of worsening shortness of breath, patient has a known history of COPD she stated that she started having shortness of breath about 2 weeks ago she received oral steroids by her primary care physician Dr. Barron however her condition continued to worsen and she decided to come to emergency room. Patient was evaluated in emergency room her vital examination on presentation reveals a temperature of 98.5 pulse 1 or 2 respiration 22 blood pressure 202/93 pulse ox 96% on room air, her white blood count was 13.7 hemoglobin 13 platelet count 229 BUN 55 creatinine 1.98 troponin level 0.012 BNP was 888 lactic acid 1.8 d-dimer 1.05 coronavirus PCR was negative chest x-ray on presentation revealed chronic changes without acute pulmonary process, EKG revealed normal sinus rhythm with nonspecific ST and T-wave abnormality. Her past medical history is significant for history of hypertension, history of hyperlipidemia, history of COPD, history of pneumonia, history of TIA 20 years ago, history of bowel obstruction requiring surgery in the past, history of ovarian tumor removal. 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 On review of systems patient is alert and oriented 3 in no apparent distress she is complaining of weakness of breath with any activity she has some dry cough without any sputum production otherwise she denies any complaints there is no fever or chills no headache or dizziness no chest pain no palpitation no nausea or vomiting no abdominal pain no diarrhea no blood in the stools no burning with urination no frequency or urgency and no hematuria. On 05/18/2020 patient was seen and examined on the medical floor she is alert and oriented 3 in no apparent distress, her shortness of breath is improving, she denies any other symptoms there is no fever or chills no headache or dizziness no chest pain no cough no sputum production no palpitation no nausea or vomiting no abdominal pain no diarrhea no blood in the stools no burning with urination no frequency or urgency and no hematuria. VQ scan was done yesterday and showed low probability for pulmonary embolism at this time will discontinue Lovenox 60 mg twice daily and start Lovenox 40 mg subcu once daily. On 05/19/2020 patient was seen and examined on the medical floor she is alert and oriented 3 in no distress she is still complaining of shortness of breath however she improved since yesterday otherwise she denies any complaints there is no fever or chills no headache or dizziness no chest pain no palpitation no nausea or vomiting no abdominal pain no diarrhea no blood in the stools no burning with urination no frequency or urgency and no hematuria. Blood pressure remains elevated yesterday Norvasc dose was increased to 10 mg daily today hydralazine was added to her regimen will continue to monitor blood pressure closely On 05/20/2020. Patient alert and oriented 3. Patient put she feels significantly improved. Patient is comfortable home. Discussed case with pulmonary services. Patient cleared for discharge. Patient will be DC'd and prednisone taper. Patient will also be DC'd on new blood pressure medication of hydralazine and increased dose of Norvasc. Patient advised follow-up PCP and pulmonary services management. This time patient denies chest pain or shortness breath. Patient denies nausea vomiting or diarrhea. Patient denies any urinary burning or frequency Patient Condition at Discharge: Stable Plan - Discharge Summary Discharge Rx Participant: No New Discharge Prescriptions: New hydrALAZINE HCL [Apresoline] 50 mg PO TID 30 Days #90 tab amLODIPine [Norvasc] 5 mg PO BID 30 Days #60 tab predniSONE 30 mg PO DAILY 12 Days #24 tab Continue Montelukast Sodium [Singulair] 10 mg PO HS Atorvastatin Calcium [Lipitor] 10 mg PO HS Aspirin [Adult Low Dose Aspirin EC] 81 mg PO DAILY Metoprolol Tartrate [Lopressor] 25 mg PO BID Multivitamins, Thera [Multivitamin (formulary)] 1 tab PO DAILY Fluticasone/Umeclidin/Vilanter [Trelegy Ellipta 100-62.5-25] 1 puff INHALATION RT-DAILY Discontinued amLODIPine [Norvasc] 5 mg PO DAILY predniSONE [Deltasone] See Taper PO DAILY Discharge Medication List Aspirin [Adult Low Dose Aspirin EC] 81 mg PO DAILY 02/10/15 [History] Atorvastatin Calcium [Lipitor] 10 mg PO HS 02/10/15 [History] Montelukast Sodium [Singulair] 10 mg PO HS 02/10/15 [History] Metoprolol Tartrate [Lopressor] 25 mg PO BID 02/20/15 [History] Fluticasone/Umeclidin/Vilanter [Trelegy Ellipta 100-62.5-25] 1 puff INHALATION RT-DAILY 05/17/20 [History] Multivitamins, Thera [Multivitamin (formulary)] 1 tab PO DAILY 05/17/20 [History] amLODIPine [Norvasc] 5 mg PO BID 30 Days #60 tab 05/20/20 [Rx] hydrALAZINE HCL [Apresoline] 50 mg PO TID 30 Days #90 tab 05/20/20 [Rx] predniSONE 30 mg PO DAILY 12 Days #24 tab 05/20/20 [Rx] Follow up Appointment(s)/Referral(s): Brando Hernandez MD [STAFF PHYSICIAN] - 1 Week Babita Barron MD [Primary Care Provider] - 1-2 days Activity/Diet/Wound Care/Special Instructions: Activity as tolerated Diet heart healthy Discharge Disposition: HOME SELF-CARE
[2020-05-20 19:37] LABS: Basophils # (A) 0.02 X 10*3/uL (0.00-0.10); Basophils % (A) 0.1 %; Eosinophils # (A) 0.02 X 10*3/uL (0.04-0.35); Eosinophils % (A) 0.1 %; HCT 40.2 % (37.2-46.3); HGB 12.8 g/dL (12.0-15.0); Lymphocytes % (A) 7.6 %; MCH 31.2 pg (27.0-32.0); MCHC 31.8 g/dL (32.0-37.0); Mean Platelet Volume 12.1 fL (9.5-12.2); Monocytes # (A) 1.38 X 10*3/uL (0.20-1.00); Monocytes % (A) 9.6 %; Neutrophils # (A) 11.77 X 10*3/uL (1.80-7.70); Neutrophils % (A) 81.6 %; Platelet Count 260 X 10*3/uL (140-440); RDW 14.3 % (11.5-14.5); WBC 14.43 X 10*3/uL (4.50-10.00)
[2020-05-21 00:20] LABS: African American GFR (CKD) 23.6 (60.0-200.0); Albumin 4.4 g/dL (3.80-4.90); Albumin/Globulin Ratio 2.75 (1.60-3.17); Anion Gap 18.1 mmol/L (4.00-12.00); BUN/Creat Ratio 32.38 Ratio (12.00-20.00); Carbon Dioxide 18.9 mmol/L (21.6-31.8); Globulin 1.6 g/dL (1.6-3.3); Non-African American GFR(CKD) 20.4 (60.0-200.0); Potassium 4.5 mmol/L (3.5-5.5); Total Bilirubin 0.4 mg/dL (0.2-1.2)
== END 2020-05-20 13:47 | disposition home or self-care (01) ==
LOC: EC 09:13 → 6NMEDSUR 11:16 → OBSVTOIN 05-19 14:32 → INTOOBSV 05-19 14:32 → UNDODISIN 05-20 13:47
PROVIDERS: ADMIT Internal Medicine; ATTEND Internal Medicine
DX: R06.02 Shortness of breath (principal); R79.89 Other specified abnormal findings of blood chemistry; E78.5 Hyperlipidemia, unspecified; I16.0 Hypertensive urgency; I12.9 Hypertensive chronic kidney disease with stage 1 through stage 4 chronic kidney disease, or unspecified chronic kidney disease; N18.4 Chronic kidney disease, stage 4 (severe); K21.9 Gastro-esophageal reflux disease without esophagitis; Z87.01 Personal history of pneumonia (recurrent); Z90.49 Acquired absence of other specified parts of digestive tract; Z98.890 Other specified postprocedural states; Z20.822 Contact with and (suspected) exposure to COVID-19; J44.1 Chronic obstructive pulmonary disease with (acute) exacerbation; Z79.51 Long term (current) use of inhaled steroids; Z79.82 Long term (current) use of aspirin; Z79.899 Other long term (current) drug therapy; Z91.048 Other nonmedicinal substance allergy status; Z88.1 Allergy status to other antibiotic agents; Z88.0 Allergy status to penicillin; Z86.73 Personal history of transient ischemic attack (TIA), and cerebral infarction without residual deficits; Z85.43 Personal history of malignant neoplasm of ovary; Z86.19 Personal history of other infectious and parasitic diseases; Z87.891 Personal history of nicotine dependence; Z80.9 Family history of malignant neoplasm, unspecified
CPT/HCPCS: 96376 ×3; 96372 ×4; 96374; 99285; 36415; 94640 ×7; 94760; 93005; 85379; 83880; 80053 ×3; 83605; 84484; 85025 ×3; 85610; 85730; 87635; 71046; 78582; G0378 ×4; A9540; A9567; J2920 ×2; J2930 ×2; J1650 ×4; J7512